=== PATIENT | female | born 1955 | race Caucasian/White ===

== ENCOUNTER 2016-12-04 06:05 | Emergency (ER) | payer OTHER ==
[2016-12-04] MEDS ORDERED: Aspirin 325 MG Tab PO ONE (06:24)
[2016-12-04] MEDS ORDERED: Aspirin 81 MG Tab.Chew PO ONE (06:26)
[2016-12-04] MEDS ORDERED: Nitroglycerin 2% Oint 1 GM UD Packet TOP ONE (06:33)
--- NOTE | 2016-12-04 06:38 | EDM.PDOC ---
ED HPI GENERAL MEDICAL PROBLEM - General Chief Complaint: Cardiovascular Problem Stated Complaint: CHEST PAIN Time Seen by Provider: 12/04/16 06:28 Source of Information: Reports: Patient, Family History Limitations: Reports: Respiratory Distress (chest pain) - History of Present Illness INITIAL COMMENTS - FREE TEXT/NARRATIVE: 61 y.o.w.f, smoker 20 pack years, came to the ed this am due to SSCP, which got orse acutely at about 3 am. Pt has CP for 1 week with radiation to her left arm. 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 No N/V/D or any other acute medical issues at this time. Onset Date: 12/04/16 Onset Time: 03:00 Duration: Hour(s):, Intermittent Location: Reports: Chest Quality: Reports: Dull, Pressure Severity: Moderate Improves with: Reports: Medication Associated Symptoms: Reports: Chest Pain Treatments BOTTOM STOP ATTACHER: Reports: Acetaminophen Chest Pain Score (Numeric/FACES): 5 - Related Data Allergies Allergy/AdvReac Type Severity Reaction Status Date / Time No Known Allergies Allergy Verified 12/04/16 06:27 Home Meds: Home Meds Levothyroxine Sodium [Synthroid] 100 mcg PO DAILY 12/04/16 [History] Social & Family History - Tobacco Use Years of Tobacco use: 24 - Alcohol Use Days Per Week of Alcohol Use: 0 - Recreational Drug Use Recreational Drug Use: No ED ROS GENERAL - Review of Systems Review Of Systems: See Below Constitutional: Reports: No Symptoms HEENT: Reports: No Symptoms Respiratory: Reports: Shortness of Breath, Wheezing Cardiovascular: Reports: Chest Pain Endocrine: Reports: No Symptoms GI/Abdominal: Reports: No Symptoms : Reports: No Symptoms Musculoskeletal: Reports: No Symptoms Skin: Reports: No Symptoms Neurological: Reports: No Symptoms Psychiatric: Reports: No Symptoms Hematologic/Lymphatic: Reports: No Symptoms Immunologic: Reports: No Symptoms ED EXAM, GENERAL - Physical Exam Exam: See Below Exam Limited By: No Limitations General Appearance: Alert, WD/WN, Moderate Distress Eye Exam: Bilateral Eye: Normal Inspection Ears: Normal External Exam Ear Exam: Bilateral Ear: Auricle Normal Nose: Normal Inspection, Normal Mucosa Throat/Mouth: Other (poor dentition) Head: Atraumatic, Normocephalic Neck: Normal Inspection, Supple, Non-Tender Respiratory/Chest: Wheezing Cardiovascular: Normal Peripheral Pulses, Regular Rate, Rhythm GI/Abdominal: Normal Bowel Sounds, Soft (Female) Exam: Deferred Rectal (Female) Exam: Deferred Back Exam: Normal Inspection, Full Range of Motion Extremities: Normal Inspection, Normal Range of Motion, Non-Tender Neurological: Alert, Oriented, CN II-XII Intact, Normal Cognition Psychiatric: Normal Affect, Normal Mood Skin Exam: Warm, Dry, Intact, Normal Color, No Rash Lymphatic: No Adenopathy EKG INTERPRETATION EKG Date: 12/04/16 Time: 06:10 Rhythm: NSR Rate (Beats/Min): 71 [place]: Normal P-Wave: Present QRS: Normal ST-T: Other (1 mm inf leads with reciprocal ST depression ant. lat leads.) QT: Normal Comparison: NA - No Prior EKG Course - Vital Signs Text/Narrative:: 61 y.o.w.f, smoker 20 pack years, came to the ed this am due to SSCP, which got orse acutely at about 3 am. Pt has CP for 1 week with radiation to her left arm. 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 No N/V/D or any other acute medical issues at this time. PE: WNWD WF with SSCP, exp wheezes. EKG: ST elevation in leads 1 mm Consultation: Dr. Obrien, Assistant Spa Manager [facility]: Pt does not qualify for STEMI , Repeat EKG: ST elevations inf leads: Not worsening: As per Dr. Pina, pt does tot qualify for a STEMI and must be treated as a Non STEMI with nitropast and Heparin drip with 4000 Units bolus, Addendum: The 2 ECGs were faxed to Dr. Pina. Labs: Na 129, BNP 264, Troponin 14.11 K 3.9 Imaging: CXR port: NAD Impression: Non STEMI, Asthma Tx: ASA, NTG, NS, Heparin, Protonix, Morphion, duoneb. Consultation: [facility] accepted the pt for transfer and admission. Vitals on transfer: BP 145/87 O2 100% on RA, puls 72 pain level 2-310 Plan: Transfere to [facility], direct admit by EMS. Last Recorded V/S: Last Vital Signs Temp 36.3 C 12/04/16 07:30 Pulse 66 12/04/16 07:30 Resp 14 12/04/16 07:30 BP 145/74 H 12/04/16 07:33 Pulse Ox 99 12/04/16 07:30 - Orders/Labs/Meds Orders: Active Orders 24 hr Category Date Time Status Supplemental O2 [Oxygen Therapy, ED] [RC] ASDIRECTED Care 12/04/16 07:17 Active CXR [Chest 1V Frontal] [CR] Stat Exams 12/04/16 06:27 Taken EKG 12 Lead [EK] Routine Ther 12/04/16 06:00 Ordered EKG 12 Lead [EK] Routine Ther 12/04/16 06:35 Ordered Labs: Laboratory Tests 12/04/16 12/04/16 12/04/16 Range/Units 06:30 06:38 06:38 WBC 11.4 (4.5-12.0) X10-3/uL RBC 4.97 (3.23-5.20) x10(6)uL Hgb 16.1 H (11.5-15.5) g/dL Hct 47.3 (30.0-51.3) % MCV 95.3 (80-96) fL MCH 32.4 (27.7-33.6) pg MCHC 34.0 (32.2-35.4) g/dL RDW 12.3 (11.5-15.5) % Plt Count 237 (125-369) X10(3)uL MPV 8.1 (7.4-10.4) fL Neut % (Auto) 76.2 (46-82) % Lymph % (Auto) 16.3 (13-37) % [place] % (Auto) 5.9 (4-12) % Eos % (Auto) 1 (1.0-5.0) % Baso % (Auto) 1 (0-2) % Neut # (Auto) 8.6 H (1.6-8.3) # Lymph # (Auto) 1.9 (0.6-5.0) # [place] # (Auto) 0.7 (0.0-1.3) # Eos # (Auto) 0.1 (0.0-0.8) # Baso # (Auto) 0.1 (0.0-0.2) # PT 9.7 (8.7-11.1) INR 0.96 (0.89-1.13) Sodium (135-145) mmol/L Potassium (3.5-5.3) mmol/L Chloride (100-110) mmol/L Carbon Dioxide (23-29) mmol/L BUN (5-20) mg/dL Creatinine (0.6-1.3) mg/dL Est Cr Clr Drug Dosing mL/min Estimated GFR (MDRD) (>60) BUN/Creatinine Ratio (9-20) Glucose (80-116) mg/dL Calcium (8.6-10.2) mg/dL Troponin I (0.02-0.06) NG/ML B-Natriuretic Peptide 264 H (0-100) pg/mL 12/04/16 12/04/16 Range/Units 06:38 06:38 WBC (4.5-12.0) X10-3/uL RBC (3.23-5.20) x10(6)uL Hgb (11.5-15.5) g/dL Hct (30.0-51.3) % MCV (80-96) fL MCH (27.7-33.6) pg MCHC (32.2-35.4) g/dL RDW (11.5-15.5) % Plt Count (125-369) X10(3)uL MPV (7.4-10.4) fL Neut % (Auto) (46-82) % Lymph % (Auto) (13-37) % [place] % (Auto) (4-12) % Eos % (Auto) (1.0-5.0) % Baso % (Auto) (0-2) % Neut # (Auto) (1.6-8.3) # Lymph # (Auto) (0.6-5.0) # [place] # (Auto) (0.0-1.3) # Eos # (Auto) (0.0-0.8) # Baso # (Auto) (0.0-0.2) # PT (8.7-11.1) INR (0.89-1.13) Sodium 129 L (135-145) mmol/L Potassium 3.8 (3.5-5.3) mmol/L Chloride 98 L (100-110) mmol/L Carbon Dioxide 22 L (23-29) mmol/L BUN 15 (5-20) mg/dL Creatinine 1.1 (0.6-1.3) mg/dL Est Cr Clr Drug Dosing 49.55 mL/min Estimated GFR (MDRD) 51 L (>60) BUN/Creatinine Ratio 13.6 (9-20) Glucose 171 H (80-116) mg/dL Calcium 9.4 (8.6-10.2) mg/dL Troponin I 14.11 H* (0.02-0.06) NG/ML B-Natriuretic Peptide (0-100) pg/mL Meds: Medications Discontinued Medications Generic Name Dose Route Start Last Admin Trade Name Yoelq PRN Reason Stop Dose Admin Albuterol/Ipratropium 3 ml 12/04/16 07:15 12/04/16 07:21 Duoneb 3.0-0.5 Mg/3 Ml NEB 12/04/16 07:16 3 ml ONETIME ONE Administration Aspirin 325 mg 12/04/16 06:24 Aspirin PO 12/04/16 06:25 ONETIME ONE Aspirin 324 mg 12/04/16 06:26 12/04/16 06:47 Aspirin PO 12/04/16 06:27 324 mg ONETIME ONE Administration Heparin Sodium (Porcine) 4,000 units 12/04/16 06:53 12/04/16 07:02 Heparin Sodium IVPUSH 12/04/16 06:54 4,000 units ONETIME ONE Administration Heparin Sodium (Porcine) Confirm 12/04/16 06:55 12/04/16 07:02 Heparin Sodium Administered 12/04/16 06:56 Not Given Dose 5,000 units .ROUTE .STK-MED ONE Sodium Chloride 1,000 mls @ 125 mls/hr 12/04/16 06:45 Normal Saline IV ASDIRECTED ON LICENSE OF [facility] Heparin Sodium/Dextrose Confirm 12/04/16 06:55 12/04/16 07:02 Heparin 25,000 Units In D5w 500 Ml Administered 12/04/16 06:56 Not Given Dose 500 mls @ as directed .ROUTE .STK-MED ONE Heparin Sodium/Dextrose 25,000 units in 500 mls @ 15.241 mls/hr 12/04/16 07: 00 12/04/16 07:10 Heparin 25,000 Units In D5w 500 Ml IV 12 units/kg/hr TITRATE BURAK 15.241 mls/hr Protocol Administration 12 UNITS/KG/HR Sodium Chloride 500 mls @ 999 mls/hr 12/04/16 07:06 06/29/17 07:19 Normal Saline IV 12/04/16 07:36 999 mls/hr .BOLUS ONE Administration Morphine Sulfate 1 mg 12/04/16 07:05 12/04/16 07:18 Morphine IVPUSH 12/04/16 07:06 1 mg ONETIME ONE Administration Morphine Sulfate 2 mg 12/04/16 07:24 12/04/16 07:31 Morphine IVPUSH 12/04/16 07:25 2 mg ONETIME ONE Administration Morphine Sulfate 4 mg 12/04/16 07:33 12/04/16 07:44 Morphine IVPUSH 12/04/16 07:34 4 mg ONETIME ONE Administration Nitroglycerin 1 gm 12/04/16 06:33 12/04/16 06:47 Nitro-Bid 2% TOP 12/04/16 06:34 1 gm ONETIME ONE Administration Nitroglycerin 0.4 mg 12/04/16 07:32 12/04/16 07:33 Nitrostat SL 12/04/16 07:43 0.4 mg Q5M PRN Administration Chest Pain Pantoprazole Sodium 40 mg 12/04/16 07:28 12/04/16 07:36 Protonix Iv IVPUSH 12/04/16 07:29 40 mg ONETIME ONE Administration Departure - Departure Time of Disposition: 07:30 Disposition: DC/Tfer to Acute Hospital 02 Reason for Transfer *Q: Other (No Assistant Spa Manager in this facility) Condition: Fair Clinical Impression: Non-ST elevated myocardial infarction (non-STEMI) Asthma Qualifiers: Asthma severity: moderate persistent Asthma complication type: with acute exacerbation Qualified Code(s): J45.41 - Moderate persistent asthma with (acute ) exacerbation Referrals: Migel Davis MD [Primary Care Provider] - Forms: ED Department Discharge - My Orders Last 24 Hours: My Active Orders 12/04/16 06:00 EKG 12 Lead [EK] Routine 12/04/16 06:27 CXR [Chest 1V Frontal] [CR] Stat 12/04/16 06:35 EKG 12 Lead [EK] Routine 12/04/16 07:17 Supplemental O2 [Oxygen Therapy, ED] [RC] ASDIRECTED - Assessment/Plan Last 24 Hours: My Active Orders 12/04/16 06:00 EKG 12 Lead [EK] Routine 12/04/16 06:27 CXR [Chest 1V Frontal] [CR] Stat 12/04/16 06:35 EKG 12 Lead [EK] Routine 12/04/16 07:17 Supplemental O2 [Oxygen Therapy, ED] [RC] ASDIRECTED
[2016-12-04] MEDS: Sodium Chloride 0.9% 1,000 ML IV SCH (06:45)
[2016-12-04] MEDS ORDERED: Heparin Sodium 5,000 Units/ML Vial ONE (06:55)
[2016-12-04] MEDS: Heparin Sodium 5,000 Units/ML Vial IVPUSH ONE ×2 (07:00→07:02)
[2016-12-04] MEDS: Heparin Sodium/D5W 500 ML ONE ×2 (07:00→07:02)
[2016-12-04] MEDS ORDERED: Heparin Sodium/D5W 25,000 UNITS/500 ML BAG IV SCH (07:00)
[2016-12-04] MEDS ORDERED: Morphine 2 MG/ML Syringe IVPUSH ONE ×2 (07:05→07:24)
[2016-12-04] MEDS ORDERED: Sodium Chloride 0.9% 500 ML IV ONE (07:06)
[2016-12-04] MEDS ORDERED: Albuterol/Ipratropium 3.0-0.5 MG/3 ML Neb Soln NEB ONE (07:15)
[2016-12-04] MEDS ORDERED: Pantoprazole 40 MG Vial IVPUSH ONE (07:28)
[2016-12-04] MEDS ORDERED: Nitroglycerin 0.4 MG Tab.SL SL PRN (07:32)
[2016-12-04] MEDS ORDERED: Morphine 4 MG/ML Syringe IVPUSH ONE (07:33)
[2016-12-04 07:34] VITALS: BP 145/74
--- NOTE | 2016-12-05 10:36 | CR ---
INDICATION: Chest pain. CHEST: Two AP portable upright views of the chest were obtained 12/04/2016. No comparisons were available. The heart appeared normal in size. The aorta is minimally calcified in the arch area. Overlying EKG leads are noted. An active infiltrate or effusion was not identified. IMPRESSION: 1. No acute process. 2. ASD aorta. MTDD
== END 2016-12-04 07:50 ==
LOC: FB.ED 06:05
DX: I21.4 Non-ST elevation (NSTEMI) myocardial infarction (principal); J45.41 Moderate persistent asthma with (acute) exacerbation
CPT/HCPCS: 36415; 71010; 80048; 83880; 84484; 85025; 85610; 93005; 94640; 94664; 96365; 96375; 96376; 99285; A9270; C9113; J1644; J2270; J7040; J7620

== ENCOUNTER 2019-07-11 18:26 | Emergency (ER) | payer SELFPAY ==
[2019-07-11] MEDS ORDERED: Ketorolac 30 MG/ML SDV IM ONE (19:01)
--- NOTE | 2019-07-11 19:07 | EDM.PDOC ---
ED HPI GENERAL MEDICAL PROBLEM - General Chief Complaint: Lower Extremity Injury/Pain Stated Complaint: WEAK BACK PAIN Time Seen by Provider: 07/11/19 18:32 Source of Information: Reports: Patient History Limitations: Reports: No Limitations - History of Present Illness INITIAL COMMENTS - FREE TEXT/NARRATIVE: has bilateral neuropathy but this pm, made dinner ,sat down and ate dinner , then afterwards , developed pain in the lower back radiating down the right leg to the right knee States she has had same in the past , pain in the right leg gets worse with ambulation, activity and better with rest Onset: Today Onset Date: 07/11/19 Onset Time: 17:00 Location: Reports: Back, Lower Extremity, Right Quality: Reports: Ache, Dull Severity: Moderate Improves with: Reports: Heat Therapy, Rest Worsens with: Reports: Movement Context: Reports: Activity Bilateral Leg Pain Score (Numeric/FACES): 8 - Related Data Allergies Allergy/AdvReac Type Severity Reaction Status Date / Time No Known Allergies Allergy Verified 12/04/16 06:27 Home Meds: Home Meds Baclofen 10 mg PO BID PRN #20 tablet 07/11/19 [Rx] Clopidogrel [Plavix] 75 mg PO DAILY 07/11/19 [History] Glimepiride [Amaryl] 4 mg PO DAILY 07/11/19 [History] Levothyroxine [Synthroid] 88 mcg PO DAILY 07/11/19 [History] Losartan [Cozaar] 25 mg PO DAILY 07/11/19 [History] Meloxicam 7.5 mg PO DAILY #7 tablet 07/11/19 [Rx] Metoprolol Succinate [Toprol XL] 25 mg PO DAILY 07/11/19 [History] Montelukast [Singulair] 10 mg PO DAILY 07/11/19 [History] atorvaSTATin [Lipitor] 80 mg PO DAILY 07/11/19 [History] predniSONE 40 mg PO DAILY #5 tab 07/11/19 [Rx] Social & Family History - Tobacco Use Smoking Status *Q: Never Smoker - Caffeine Use Caffeine Use: Reports: Coffee - Recreational Drug Use Recreational Drug Use: No Review of Systems - Review of Systems Review Of Systems: See Below Constitutional: Reports: No Symptoms Eyes: Reports: No Symptoms Ears: Reports: No Symptoms Nose: Reports: No Symptoms Mouth/Throat: Reports: No Symptoms Respiratory: Reports: No Symptoms Cardiovascular: Reports: No Symptoms GI/Abdominal: Reports: No Symptoms Musculoskeletal: Reports: Back Pain, Leg Pain (right sided) Skin: Reports: No Symptoms Neurological: Reports: Dizziness, Headache, Numbness, Paresthesia, Tingling ( right leg) Psychiatric: Reports: Anxiety ED EXAM, GENERAL - Physical Exam Exam: See Below Exam Limited By: No Limitations General Appearance: Alert, WD/WN, Mild Distress (pain in the lower back with attempts to move) Ears: Normal External Exam Throat/Mouth: Normal Inspection Head: Atraumatic, Normocephalic Neck: Supple, Non-Tender, Full Range of Motion Respiratory/Chest: No Respiratory Distress, Chest Non-Tender Back Exam: Paraspinal Tenderness, Vertebral Tenderness (in L4-5 region on palpation), Other (SLR is positive on the right) Extremities: Limited Range of Motion (in the right leg due to pain in the lumbar region , sensation intact). No: Mottled, Pallor, Redness Neurological: Alert, Oriented, CN II-XII Intact, Abnormal Gait (antalgic gait) Skin Exam: Warm, Dry Course - Vital Signs Last Recorded V/S: Last Vital Signs Temp 36.6 C 07/11/19 18:26 Pulse 110 H 07/11/19 18:26 Resp 20 07/11/19 18:26 BP 118/68 07/11/19 18:26 Pulse Ox 100 07/11/19 18:26 - Orders/Labs/Meds Orders: Active Orders 24 hr Category Date Time Status Lumbar Spine 2 or 3V [CR] Stat Exams 07/11/19 18:59 Taken Meds: Medications Discontinued Medications Generic Name Dose Route Start Last Admin Trade Name Luzmaria PRN Reason Stop Dose Admin Ketorolac Tromethamine 30 mg 07/11/19 19:01 07/11/19 19:33 Toradol IM 07/11/19 19:02 30 mg ONETIME ONE Administration Prednisone 50 mg 07/12/19 07:03 Prednisone PO 07/12/19 07:04 ONETIME ONE Prednisone 50 mg 07/11/19 19:24 07/11/19 19:32 Prednisone PO 07/11/19 19:25 50 mg ONETIME ONE Administration Departure - Departure Time of Disposition: 20:15 Disposition: Home, Self-Care 01 Condition: Fair Clinical Impression: Right-sided low back pain with right-sided sciatica, Lumbar paraspinal muscle spasm - Discharge Information *PRESCRIPTION DRUG MONITORING PROGRAM REVIEWED*: Not Applicable *COPY OF PRESCRIPTION DRUG MONITORING REPORT IN PATIENT [place]: Not Applicable Prescriptions: Baclofen 10 mg PO BID PRN #20 tablet PRN Reason: Muscle Spasm Meloxicam 7.5 mg PO DAILY #7 tablet predniSONE 40 mg PO DAILY #5 tab Instructions: Back Exercises, [id number], Sciatica, [id number], Muscle Cramps and Spasms, [id number] Referrals: Alvin Chahal PA [Primary Care Provider] - Forms: ED Department Discharge Sepsis Event Note - Evaluation Sepsis Screening Result: No Definite Risk - Focused Exam Vital Signs: Vital Signs Temp Pulse Resp BP Pulse Ox 07/11/19 18:26 36.6 C 110 H 20 118/68 100 Date Exam was Performed: 07/11/19 Time Exam was Performed: 20:15 - My Orders Last 24 Hours: My Active Orders 07/11/19 18:59 Lumbar Spine 2 or 3V [CR] Stat - Assessment/Plan Last 24 Hours: My Active Orders 07/11/19 18:59 Lumbar Spine 2 or 3V [CR] Stat
[2019-07-11] MEDS ORDERED: predniSONE 20 MG Tab PO ONE (19:24)
[2019-07-12 06:21] VITALS: BP 126/60; PULSE 97
[2019-07-12] MEDS ORDERED: predniSONE 20 MG Tab PO ONE (07:03)
--- NOTE | 2019-07-12 17:24 | CR ---
INDICATION: Low back pain, right sciatica. LUMBOSACRAL SPINE, FOUR VIEWS: Four images of the lumbosacral spine in frontal and lateral projections were obtained 07/11/19 - no comparisons. A slight tilt of the spine is centered at the L4-5 level. Vertebral body and disc heights appear to be fairly well maintained. Pedicles appear to be intact. Bone density may be somewhat diminished raising question of osteomalacia or osteoporosis - correlate clinically. A mild hypertrophic spur is noted anteriorly off the L3 vertebral body cranio- anteriorly. No acute fracture or dislocation was suggested. Appearance of increased density in a horseshoe appearance overlying the spine is of questionable significance but could be related to a horseshoe type kidney. However, this appearance was not seen on a previous ultrasound of the right upper quadrant/abdomen on 04/13/12 and it may be artifactual. Calcifications incidentally are noted in the abdominal aorta and iliac arteries. IMPRESSION: 1. Tilt of the spine to the left of moderate degree. 2. Somewhat demineralized appearance raising question of osteoporosis or osteomalacia - correlate clinically - DEXA scan may be helpful. 3. ASD, MTDD
== END 2019-07-11 20:40 | disposition home or self-care (01) ==
LOC: FB.ED 18:26
DX: M54.41 Lumbago with sciatica, right side (principal); M62.830 Muscle spasm of back
CPT/HCPCS: 72100; 96372; 99283; A9270; J1885

== ENCOUNTER 2019-09-02 15:42 | Emergency (ER) | payer MEDICAID, OTHER ==
[2019-09-02] MEDS ORDERED: Sodium Chloride 0.9% 250 ML IV SCH (16:00)
[2019-09-02] MEDS ORDERED: Sodium Chloride 0.9% 1,000 ML IV SCH ×3 (16:15→18:45)
--- NOTE | 2019-09-02 16:21 | EDM.PDOC ---
ED HPI GENERAL MEDICAL PROBLEM - General Chief Complaint: General Stated Complaint: shortness of breath Time Seen by Provider: 09/02/19 16:40 Source of Information: Reports: Patient, Family. Denies: Senior Living Records History Limitations: Reports: No Limitations - History of Present Illness INITIAL COMMENTS - FREE TEXT/NARRATIVE: pt presented to clinic with continous low back pain , radiating down her leg with numbness and tingling in the leg had been on NSAID, no obvious bleed , no gross hematuria , no bloody diarrhea , no vomiting denies chest resendiz , but has sob seen in clinic and noted to be very pale with Hgb of 3 pt is on Plavix Onset: Today Onset Date: 09/02/19 Duration: Day(s): Location: Reports: Back, Lower Extremity, Left, Radiates to (left leg) Quality: Reports: Ache, Burning Improves with: Reports: None Worsens with: Reports: Movement Associated Symptoms: Reports: Weakness Treatments 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 Therapy, Heat Therapy BACK Pain Score (Numeric/FACES): 8 - Related Data Allergies Allergy/AdvReac Type Severity Reaction Status Date / Time No Known Allergies Allergy Verified 09/12/19 12:38 Home Meds: Home Meds Baclofen 10 mg PO BID PRN #20 tablet 07/11/19 [Rx] Clopidogrel [Plavix] 75 mg PO DAILY 07/11/19 [History] Glimepiride [Amaryl] 4 mg PO DAILY 07/11/19 [History] Levothyroxine [Synthroid] 88 mcg PO DAILY 07/11/19 [History] Losartan [Cozaar] 25 mg PO DAILY 07/11/19 [History] Meloxicam 7.5 mg PO DAILY #7 tablet 07/11/19 [Rx] Metoprolol Succinate [Toprol XL] 25 mg PO DAILY 07/11/19 [History] atorvaSTATin [Lipitor] 80 mg PO DAILY 07/11/19 [History] Aspirin [Lo-Dose Aspirin EC] 81 mg PO DAILY 09/02/19 [History] Azithromycin [Zithromax] 500 mg PO DAILY #4 tab 09/12/19 [Rx] Nitrofurantoin Monohyd/M-Cryst [Macrobid 100 mg Capsule] 100 mg PO BID #14 capsule 09/12/19 [Rx] Past Medical History Cardiovascular History: Reports: ND, Stents - Infectious Disease History Infectious Disease History: Reports: None - Past Surgical History Cardiovascular Surgical History: Reports: Coronary Artery Stent Social & Family History - Family History Family Medical History: Noncontributory - Caffeine Use Caffeine Use: Reports: Coffee ED ROS GENERAL - Review of Systems Review Of Systems: See Below Constitutional: Reports: Weakness, Decreased Appetite HEENT: Reports: No Symptoms Respiratory: Reports: Shortness of Breath. Denies: Wheezing, Cough Cardiovascular: Reports: Lightheadedness, Palpitations. Denies: Chest Pain Endocrine: Reports: Fatigue GI/Abdominal: Reports: Decreased Appetite Musculoskeletal: Reports: Back Pain (lumbar back pain) Skin: Reports: Pallor (+++) Neurological: Reports: Dizziness, Weakness Psychiatric: Reports: No Symptoms Hematologic/Lymphatic: Reports: Anemia. Denies: Easy Bruising, Swollen Glands ED EXAM, GENERAL - Physical Exam Exam: See Below Exam Limited By: No Limitations General Appearance: Alert, Lethargic, Other (very pale and ill looking) Eye Exam: Bilateral Eye: EOMI, Other (pale) Ears: Normal External Exam Ear Exam: Bilateral Ear: TM normal Nose: Normal Inspection Throat/Mouth: Normal Inspection Head: Atraumatic Neck: Supple, Non-Tender Respiratory/Chest: Decreased Breath Sounds, Crackles, Rales Cardiovascular: Regular Rate, Rhythm, Systolic Murmur Peripheral Pulses: 1+: Dorsalis Pedis (L), Dorsalis Pedis (R) GI/Abdominal: Soft, Non-Tender Back Exam: Muscle Spasm, Paraspinal Tenderness (lumbar region) Extremities: Limited Range of Motion Neurological: Alert, Oriented Psychiatric: Normal Affect Skin Exam: Warm EKG INTERPRETATION EKG Date: 09/02/19 Rhythm: NSR [place]: Normal P-Wave: Present QRS: Normal ST-T: Normal Comparison: NA - No Prior EKG Course - Vital Signs Last Recorded V/S: Last Vital Signs Temp 35.9 C L 09/02/19 19:15 Pulse 88 09/02/19 19:15 Resp 24 H 09/02/19 19:15 BP 104/59 L 09/02/19 19:15 Pulse Ox 100 09/02/19 18:21 - Orders/Labs/Meds Labs: Laboratory Tests 09/02/19 09/02/19 09/02/19 Range/Units 15:50 15:50 15:50 WBC 10.0 (4.5-12.0) X10-3/uL RBC 2.08 L (3.23-5.20) x10(6)uL Hgb 3.4 L* (11.5-15.5) g/dL Hct 12.1 L* D (30.0-51.3) % MCV 58.3 L (80-96) fL MCH 16.5 L (27.7-33.6) pg MCHC 28.4 L (32.2-35.4) g/dL RDW 22.1 H (11.5-15.5) % Plt Count 422 H (125-369) X10(3)uL MPV 7.1 L (7.4-10.4) fL Neut % (Auto) 83.2 H (46-82) % Lymph % (Auto) 11.3 L (13-37) % Cecil % (Auto) 4.5 (4-12) % Eos % (Auto) 0 L (1.0-5.0) % Baso % (Auto) 1 (0-2) % Neut # (Auto) 8.3 (1.6-8.3) # Lymph # (Auto) 1.1 (0.6-5.0) # Cecil # (Auto) 0.4 (0.0-1.3) # Eos # (Auto) 0.0 (0.0-0.8) # Baso # (Auto) 0.1 (0.0-0.2) # PT 10.7 (9.0-11.1) sec INR 1.11 (1.00-1.24) Sodium 135 (135-145) mmol/L Potassium 5.0 (3.5-5.3) mmol/L Chloride 102 (100-110) mmol/L Carbon Dioxide 15 L (21-32) mmol/L BUN 16 (7-18) mg/dL Creatinine 1.4 H (0.55-1.02) mg/dL Est Cr Clr Drug Dosing TNP Estimated GFR (MDRD) 38 L (>60) BUN/Creatinine Ratio 11.4 (9-20) Glucose 116 (80-116) mg/dL Lactic Acid (0.4-2.0) mmol/L Calcium 9.0 (8.6-10.2) mg/dL Total Bilirubin 0.6 (0.1-1.3) mg/dL AST 14 (5-25) IU/L ALT 13 (12-36) U/L Alkaline Phosphatase 104 (56-112) IU/L Troponin I (4.0-60.3) pg/mL NT-Pro-B Natriuret Pep (<=125) pg/mL Total Protein 6.8 (6.0-8.0) g/dL Albumin 3.4 (3.2-4.6) g/dL Globulin 3.4 g/dL Albumin/Globulin Ratio 1.0 Urine Color (YELLOW) Urine Appearance (CLEAR) Urine pH (5.0-6.5) Ur Specific Lottie (1.010-1.025) Urine Protein (NEGATIVE) mg/dL Urine Glucose (UA) (NORMAL) mg/dL Urine Ketones (NEGATIVE) mg/dL Urine Occult Blood (NEGATIVE) Urine Nitrite (NEGATIVE) Urine Bilirubin (NEGATIVE) Urine Urobilinogen (NEGATIVE) mg/dL Ur Leukocyte Esterase (NEGATIVE) Urine RBC (0-5) Urine WBC (0-5) Ur Squamous Epith Cells (NS,R,O) Urine Bacteria (NS) Blood Type Gel Antibody Screen Crossmatch 09/02/19 09/02/19 09/02/19 Range/Units 15:50 15:50 15:50 WBC (4.5-12.0) X10-3/uL RBC (3.23-5.20) x10(6)uL Hgb (11.5-15.5) g/dL Hct (30.0-51.3) % MCV (80-96) fL MCH (27.7-33.6) pg MCHC (32.2-35.4) g/dL RDW (11.5-15.5) % Plt Count (125-369) X10(3)uL MPV (7.4-10.4) fL Neut % (Auto) (46-82) % Lymph % (Auto) (13-37) % Cecil % (Auto) (4-12) % Eos % (Auto) (1.0-5.0) % Baso % (Auto) (0-2) % Neut # (Auto) (1.6-8.3) # Lymph # (Auto) (0.6-5.0) # Cecil # (Auto) (0.0-1.3) # Eos # (Auto) (0.0-0.8) # Baso # (Auto) (0.0-0.2) # PT (9.0-11.1) sec INR (1.00-1.24) Sodium (135-145) mmol/L Potassium (3.5-5.3) mmol/L Chloride (100-110) mmol/L Carbon Dioxide (21-32) mmol/L BUN (7-18) mg/dL Creatinine (0.55-1.02) mg/dL Est Cr Clr Drug Dosing Estimated GFR (MDRD) (>60) BUN/Creatinine Ratio (9-20) Glucose (80-116) mg/dL Lactic Acid (0.4-2.0) mmol/L Calcium (8.6-10.2) mg/dL Total Bilirubin (0.1-1.3) mg/dL AST (5-25) IU/L ALT (12-36) U/L Alkaline Phosphatase (56-112) IU/L Troponin I 10.6 (4.0-60.3) pg/mL NT-Pro-B Natriuret Pep 460 H (<=125) pg/mL Total Protein (6.0-8.0) g/dL Albumin (3.2-4.6) g/dL Globulin g/dL Albumin/Globulin Ratio Urine Color (YELLOW) Urine Appearance (CLEAR) Urine pH (5.0-6.5) Ur Specific [place]ottie (1.010-1.025) Urine Protein (NEGATIVE) mg/dL Urine Glucose (UA) (NORMAL) mg/dL Urine Ketones (NEGATIVE) mg/dL Urine Occult Blood (NEGATIVE) Urine Nitrite (NEGATIVE) Urine Bilirubin (NEGATIVE) Urine Urobilinogen (NEGATIVE) mg/dL Ur Leukocyte Esterase (NEGATIVE) Urine RBC (0-5) Urine WBC (0-5) Ur Squamous Epith Cells (NS,R,O) Urine Bacteria (NS) Blood Type A POSITIVE Gel Antibody Screen Negative Crossmatch See Detail 09/02/19 09/02/19 Range/Units 18:00 19:00 WBC (4.5-12.0) X10-3/uL RBC (3.23-5.20) x10(6)uL Hgb (11.5-15.5) g/dL Hct (30.0-51.3) % MCV (80-96) fL MCH (27.7-33.6) pg MCHC (32.2-35.4) g/dL RDW (11.5-15.5) % Plt Count (125-369) X10(3)uL MPV (7.4-10.4) fL Neut % (Auto) (46-82) % Lymph % (Auto) (13-37) % Cecil % (Auto) (4-12) % Eos % (Auto) (1.0-5.0) % Baso % (Auto) (0-2) % Neut # (Auto) (1.6-8.3) # Lymph # (Auto) (0.6-5.0) # Cecil # (Auto) (0.0-1.3) # Eos # (Auto) (0.0-0.8) # Baso # (Auto) (0.0-0.2) # PT (9.0-11.1) sec INR (1.00-1.24) Sodium (135-145) mmol/L Potassium (3.5-5.3) mmol/L Chloride (100-110) mmol/L Carbon Dioxide (21-32) mmol/L BUN (7-18) mg/dL Creatinine (0.55-1.02) mg/dL Est Cr Clr Drug Dosing Estimated GFR (MDRD) (>60) BUN/Creatinine Ratio (9-20) Glucose (80-116) mg/dL Lactic Acid 5.4 H* (0.4-2.0) mmol/L Calcium (8.6-10.2) mg/dL Total Bilirubin (0.1-1.3) mg/dL AST (5-25) IU/L ALT (12-36) U/L Alkaline Phosphatase (56-112) IU/L Troponin I (4.0-60.3) pg/mL NT-Pro-B Natriuret Pep (<=125) pg/mL Total Protein (6.0-8.0) g/dL Albumin (3.2-4.6) g/dL Globulin g/dL Albumin/Globulin Ratio Urine Color Yellow (YELLOW) Urine Appearance Clear (CLEAR) Urine pH 5.0 (5.0-6.5) Ur Specific [place]ott[place] 1.010 (1.010-1.025) Urine Protein Negative (NEGATIVE) mg/dL Urine Glucose (UA) Normal (NORMAL) mg/dL Urine Ketones Negative (NEGATIVE) mg/dL Urine Occult Blood Negative (NEGATIVE) Urine Nitrite Negative (NEGATIVE) Urine Bilirubin Negative (NEGATIVE) Urine Urobilinogen Normal (NEGATIVE) mg/dL Ur Leukocyte Esterase Negative (NEGATIVE) Urine RBC 0-5 (0-5) Urine WBC 0-5 (0-5) Ur Squamous Epith Cells Occasional (NS,R,O) Urine Bacteria Rare H (NS) Blood Type Gel Antibody Screen Crossmatch Meds: Medications Discontinued Medications Generic Name Dose Route Start Last Admin Trade Name Freq PRN Reason Stop Dose Admin Sodium Chloride 250 mls @ 100 mls/hr 09/02/19 16:00 09/02/19 18:15 Normal Saline IV 100 mls/hr ASDIRECTED BURAK Administration Sodium Chloride 1,000 mls @ 999 mls/hr 09/02/19 16:15 09/02/19 16:42 Normal Saline IV 999 mls/hr ASDIRECTED BURAK Administration Sodium Chloride 1,000 mls @ 999 mls/hr 09/02/19 18:00 09/02/19 17:30 Normal Saline IV 999 mls/hr ASDIRECTED BURAK Administration Sodium Chloride 250 mls @ 100 mls/hr 09/02/19 18:30 09/02/19 19:15 Normal Saline IV 100 mls/hr ASDIRECTED BURAK Administration Sodium Chloride 1,000 mls @ 150 mls/hr 09/02/19 18:45 09/02/19 18:30 Normal Saline IV 150 mls/hr ASDIRECTED BURAK Administration Iopamidol 100 ml 09/02/19 19:16 09/02/19 19:17 Isovue-370 (76%) IV 09/02/19 19:17 82 ml ONETIME ONE Administration - Re-Assessments/Exams Free Text/Narrative Re-Assessment/Exam: 09/02/19 21:01 pt n arrival had blood and iVF ordered , then prep was done for CT of the abdomen and pelvis had to wait for blood to be crossmatched. pt had IVF at the time and remained stable Was given 2 units of A+ blood and one unit on o negative transfer was not available by air : so ambulance with [facility] came to transport her 09/02/19 21:03 Departure - Departure Time of Disposition: 20:20 Disposition: DC/Tfer to [facility] Reason for Transfer *Q: Other Condition: Serious Clinical Impression: Severe anemia, Aortic mural thrombus, Hypotension due to blood loss, Diabetes Referrals: Alvin Chahal PA [Primary Care Provider] - Forms: ED Department Discharge Sepsis Event Note - Focused Exam Date Exam was Performed: 09/12/19 Time Exam was Performed: 16:17
[2019-09-02] MEDS: Sodium Chloride 0.9% 250 ML IV SCH ×2 (18:45→19:15)
[2019-09-02] MEDS ORDERED: Iopamidol 755 Mg/ML 100 ML Bottle IV ONE (19:16)
[2019-09-02 21:38] VITALS: BP 104/59; PULSE 88
== END 2019-09-02 20:20 | disposition critical access hospital (66) ==
LOC: FB.ED 15:42
DX: D64.9 Anemia, unspecified (principal); I74.10 Embolism and thrombosis of unspecified parts of aorta; E11.9 Type 2 diabetes mellitus without complications; I95.9 Hypotension, unspecified; I25.2 Old myocardial infarction; Z79.899 Other long term (current) drug therapy; Z79.82 Long term (current) use of aspirin; Z79.02 Long term (current) use of antithrombotics/antiplatelets; Z79.84 Long term (current) use of oral hypoglycemic drugs
CPT/HCPCS: 36415; 36430; 51702; 74177; 80053; 81001; 82270; 83605; 83880; 84484; 85025; 85610; 86850; 86900; 86901; 86920; 86922; 93005; 96360; 96361; 99285; J7030; J7050; P9016; Q9967

== ENCOUNTER 2019-09-12 12:30 | Emergency (ER) | payer MEDICAID, OTHER ==
[2019-09-12] MEDS ORDERED: Sodium Chloride 0.9% 1,000 ML IV ONE (14:29)
[2019-09-12] MEDS ORDERED: Sodium Chloride 0.9% 10 ML Syringe FLUSH PRN (14:30)
[2019-09-12] MEDS ORDERED: cefTRIAXone 1 GM Vial IM ONE (14:47)
[2019-09-12] MEDS ORDERED: Azithromycin 500 MG Tab PO ONE (14:47)
--- NOTE | 2019-09-12 14:56 | EDM.PDOC ---
ED HPI GENERAL MEDICAL PROBLEM - General Chief Complaint: Fever Stated Complaint: BEEN HAVING FEVERS AT NIGHT,COLD CHILLS Time Seen by Provider: 09/12/19 12:40 Source of Information: Reports: Patient History Limitations: Reports: No Limitations - History of Present Illness INITIAL COMMENTS - FREE TEXT/NARRATIVE: pt was discharged form [place] one week ago : bleeding ulcer and aortic stenosis developed fever about 100.4 since thursday states has been persistent Fever is worse at night only Other betts feels weak and tired Onset: Gradual Onset Date: 09/10/19 Duration: Day(s): (3) - Related Data Allergies Allergy/AdvReac Type Severity Reaction Status Date / Time No Known Allergies Allergy Verified 09/12/19 12:38 Home Meds: Home Meds Baclofen 10 mg PO BID PRN #20 tablet 07/11/19 [Rx] Clopidogrel [Plavix] 75 mg PO DAILY 07/11/19 [History] Glimepiride [Amaryl] 4 mg PO DAILY 07/11/19 [History] Levothyroxine [Synthroid] 88 mcg PO DAILY 07/11/19 [History] Losartan [Cozaar] 25 mg PO DAILY 07/11/19 [History] Meloxicam 7.5 mg PO DAILY #7 tablet 07/11/19 [Rx] Metoprolol Succinate [Toprol XL] 25 mg PO DAILY 07/11/19 [History] atorvaSTATin [Lipitor] 80 mg PO DAILY 07/11/19 [History] Aspirin [Lo-Dose Aspirin EC] 81 mg PO DAILY 09/02/19 [History] Azithromycin [Zithromax] 500 mg PO DAILY #4 tab 09/12/19 [Rx] Nitrofurantoin Monohyd/M-Cryst [Macrobid 100 mg Capsule] 100 mg PO BID #14 capsule 09/12/19 [Rx] Past Medical History Cardiovascular History: Reports: CT, Stents Musculoskeletal History: Reports: Back Pain, Chronic Endocrine/Metabolic History: Reports: Diabetes, Type II, Hypothyroidism - Infectious Disease History Infectious Disease History: Reports: None - Past Surgical History Cardiovascular Surgical History: Reports: Coronary Artery Stent Social & Family History - Family History Family Medical History: Noncontributory - Tobacco Use Smoking Status *Q: Former Smoker Used Tobacco, but Quit: Yes Month/Year Tobacco Last Used: 2017 - Caffeine Use Caffeine Use: Reports: Coffee - Recreational Drug Use Recreational Drug Use: No ED ROS GENERAL - Review of Systems Review Of Systems: Comprehensive ROS is negative, except as noted in HPI. Constitutional: Reports: Fever, Chills, Malaise, Weakness, Fatigue HEENT: Reports: No Symptoms Respiratory: Reports: No Symptoms. Denies: Shortness of Breath, Wheezing, Cough Cardiovascular: Reports: No Symptoms Endocrine: Reports: No Symptoms GI/Abdominal: Reports: No Symptoms Musculoskeletal: Reports: No Symptoms Skin: Reports: No Symptoms Neurological: Reports: No Symptoms Psychiatric: Reports: No Symptoms ED EXAM, SEPSIS - Physical Exam Exam: See Below Exam Limited By: No Limitations General Appearance: Alert, WD/WN, No Apparent Distress Eye Exam: Bilateral Eye: EOMI Ears: Normal External Exam Nose: Normal Inspection Throat/Mouth: Normal Inspection, Normal Oropharynx Head: Atraumatic, Normocephalic Neck: Normal Inspection, Supple, Non-Tender Respiratory/Chest: Lungs Clear, Normal Breath Sounds Cardiovascular: Normal Peripheral Pulses, Regular Rate, Rhythm, No Murmur GI/Abdominal Exam: Soft, Non-Tender Rectal (Female) Exam: Normal Exam Back: Normal Inspection Extremities: Normal Inspection Neurological: Alert, Oriented Course - Vital Signs Last Recorded V/S: Last Vital Signs Temp 35.6 C L 09/12/19 15:25 Pulse 65 09/12/19 15:25 Resp 16 09/12/19 15:25 BP 130/56 L 09/12/19 15:25 Pulse Ox 100 09/12/19 15:25 - Orders/Labs/Meds Orders: Active Orders 24 hr Category Date Time Status CULTURE BLOOD [BC] Urgent Lab 09/12/19 13:00 Received CULTURE BLOOD [BC] Urgent Lab 09/12/19 13:10 Received CULTURE URINE [RM] Stat Lab 09/12/19 15:15 Received MISCELLANEOUS REFERENCE TEST Routine Lab 09/12/19 12:55 Received Sodium Chloride 0.9% [Saline Flush] Med 09/12/19 14:30 Active 10 ml FLUSH ASDIRECTED PRN Blood Culture x2 Reflex Set [OM.PC] Urgent Oth 09/12/19 12:48 Ordered Isolation [COMM] Routine Oth 09/12/19 12:50 Ordered Medication Orders Sodium Chloride (Saline Flush) 10 ml FLUSH ASDIRECTED PRN PRN Reason: IV Use Last Admin: 09/12/19 14:30 Dose: 10 ml Labs: Laboratory Tests 09/12/19 09/12/19 09/12/19 Range/Units 13:00 13:00 13:00 WBC 10.5 (4.5-12.0) X10-3/uL RBC 3.94 (3.23-5.20) x10(6)uL Hgb 9.0 L D (11.5-15.5) g/dL Hct 28.4 L D (30.0-51.3) % MCV 72.1 L (80-96) fL MCH 22.9 L (27.7-33.6) pg MCHC 31.8 L (32.2-35.4) g/dL RDW 29.0 H (11.5-15.5) % Plt Count 304 (125-369) X10(3)uL MPV 8.0 (7.4-10.4) fL Add Manual Diff Yes Neutrophils % (Manual) 77 (46-82) % Lymphocytes % (Manual) 17 (13-37) % Monocytes % (Manual) 6 (4-12) % Hypochromasia Few Poikilocytosis Moderate H Anisocytosis Many H Microcytosis Many H PT 10.1 (9.0-11.1) sec INR 1.04 (1.00-1.24) Sodium 135 (135-145) mmol/L Potassium 3.2 L D (3.5-5.3) mmol/L Chloride 100 (100-110) mmol/L Carbon Dioxide 21 (21-32) mmol/L BUN 10 (7-18) mg/dL Creatinine 1.5 H (0.55-1.02) mg/dL Est Cr Clr Drug Dosing 36.15 mL/min Estimated GFR (MDRD) 35 L (>60) BUN/Creatinine Ratio 6.7 L (9-20) Glucose 86 (80-116) mg/dL Calcium 8.4 L (8.6-10.2) mg/dL Total Bilirubin 0.8 (0.1-1.3) mg/dL AST 26 H D (5-25) IU/L ALT 28 D (12-36) U/L Alkaline Phosphatase 153 H (56-112) IU/L C-Reactive Protein (0.5-0.9) mg/dL Total Protein 6.8 (6.0-8.0) g/dL Albumin 2.7 L (3.2-4.6) g/dL Globulin 4.1 g/dL Albumin/Globulin Ratio 0.7 Urine Color (YELLOW) Urine Appearance (CLEAR) Urine pH (5.0-6.5) Ur Specific [place] (1.010-1.025) Urine Protein (NEGATIVE) mg/dL Urine Glucose (UA) (NORMAL) mg/dL Urine Ketones (NEGATIVE) mg/dL Urine Occult Blood (NEGATIVE) Urine Nitrite (NEGATIVE) Urine Bilirubin (NEGATIVE) Urine Urobilinogen (NEGATIVE) mg/dL Ur Leukocyte Esterase (NEGATIVE) Urine RBC (0-5) Urine WBC (0-5) Ur Squamous Epith Cells (NS,R,O) Urine Bacteria (NS) 09/12/19 09/12/19 Range/Units 13:00 15:15 WBC (4.5-12.0) X10-3/uL RBC (3.23-5.20) x10(6)uL Hgb (11.5-15.5) g/dL Hct (30.0-51.3) % MCV (80-96) fL MCH (27.7-33.6) pg MCHC (32.2-35.4) g/dL RDW (11.5-15.5) % Plt Count (125-369) X10(3)uL MPV (7.4-10.4) fL Add Manual Diff Neutrophils % (Manual) (46-82) % Lymphocytes % (Manual) (13-37) % Monocytes % (Manual) (4-12) % Hypochromasia Poikilocytosis Anisocytosis Microcytosis PT (9.0-11.1) sec INR (1.00-1.24) Sodium (135-145) mmol/L Potassium (3.5-5.3) mmol/L Chloride (100-110) mmol/L Carbon Dioxide (21-32) mmol/L BUN (7-18) mg/dL Creatinine (0.55-1.02) mg/dL Est Cr Clr Drug Dosing mL/min Estimated GFR (MDRD) (>60) BUN/Creatinine Ratio (9-20) Glucose (80-116) mg/dL Calcium (8.6-10.2) mg/dL Total Bilirubin (0.1-1.3) mg/dL AST (5-25) IU/L ALT (12-36) U/L Alkaline Phosphatase (56-112) IU/L C-Reactive Protein 22.9 H* (0.5-0.9) mg/dL Total Protein (6.0-8.0) g/dL Albumin (3.2-4.6) g/dL Globulin g/dL Albumin/Globulin Ratio Urine Color Yellow (YELLOW) Urine Appearance Slightly cloudy (CLEAR) Urine pH 6.0 (5.0-6.5) Ur Specific [place] 1.010 (1.010-1.025) Urine Protein Negative (NEGATIVE) mg/dL Urine Glucose (UA) Normal (NORMAL) mg/dL Urine Ketones Negative (NEGATIVE) mg/dL Urine Occult Blood Moderate H (NEGATIVE) Urine Nitrite Positive H (NEGATIVE) Urine Bilirubin Negative (NEGATIVE) Urine Urobilinogen Normal (NEGATIVE) mg/dL Ur Leukocyte Esterase Large H (NEGATIVE) Urine RBC 0-5 (0-5) Urine WBC >100 H (0-5) Ur Squamous Epith Cells Few H (NS,R,O) Urine Bacteria Moderate H (NS) Meds: Medications Generic Name Dose Route Start Last Admin Trade Name Freq PRN Reason Stop Dose Admin Sodium Chloride 10 ml 09/12/19 14:30 09/12/19 14:30 Saline Flush FLUSH 10 ml ASDIRECTED PRN Administration IV Use Discontinued Medications Generic Name Dose Route Start Last Admin Trade Name Freq PRN Reason Stop Dose Admin Azithromycin 500 mg 09/12/19 14:47 09/12/19 15:52 Zithromax PO 09/12/19 14:48 500 mg ONETIME ONE Administration Ceftriaxone Sodium 1 gm 09/12/19 14:47 09/12/19 15:52 Rocephin IM 09/12/19 14:48 1 gm ONETIME ONE Administration Sodium Chloride 1,000 mls @ 999 mls/hr 09/12/19 14:29 09/12/19 14:37 Normal Saline IV 09/12/19 15:29 999 mls/hr .BOLUS ONE Administration - Re-Assessments/Exams Free Text/Narrative Re-Assessment/Exam: 09/12/19 16:10 remained stable was started on Rocephin and zithromax , for possible bacteremia ( from multiple IV sites ) UA results indicates she had UTI , script given for macrobid pending urine culture results Departure - Departure Time of Disposition: 16:00 Disposition: Home, Self-Care 01 Clinical Impression: Fever and chills, Viral infection, Cellulitis and abscess of hand, UTI ( urinary tract infection) - Discharge Information *PRESCRIPTION DRUG MONITORING PROGRAM REVIEWED*: Not Applicable *COPY OF PRESCRIPTION DRUG MONITORING REPORT IN PATIENT [place]: Not Applicable Prescriptions: Azithromycin [Zithromax] 500 mg PO DAILY #4 tab Nitrofurantoin Monohyd/M-Cryst [Macrobid 100 mg Capsule] 100 mg PO BID #14 capsule Instructions: Cellulitis, Adult, Lymphangitis, Adult, Viral Illness, Adult Referrals: Alvin Chahal PA [Primary Care Provider] - Forms: ED Department Discharge Additional Instructions: 1) increase fluid intake 2) complete course of antibiotics and expect result of urine culture 3) If symptoms get worse , call your PCP Sepsis Event Note - Evaluation Sepsis Screening Result: Possible Sepsis Risk - Focused Exam Vital Signs: Vital Signs Temp Pulse Resp BP Pulse Ox 09/12/19 15:25 35.6 C L 65 16 130/56 L 100 09/12/19 13:25 36.4 C 74 18 120/49 L 98 09/12/19 12:35 36.4 C 93 20 148/65 H 99 Date Exam was Performed: 09/12/19 Time Exam was Performed: 16:01 - My Orders Last 24 Hours: My Active Orders 09/12/19 12:48 Blood Culture x2 Reflex Set [OM.PC] Urgent 09/12/19 12:50 Isolation [COMM] Routine 09/12/19 12:55 MISCELLANEOUS REFERENCE TEST Routine 09/12/19 13:00 CULTURE BLOOD [BC] Urgent 09/12/19 13:10 CULTURE BLOOD [BC] Urgent 09/12/19 14:30 Sodium Chloride 0.9% [Saline Flush] 10 ml FLUSH ASDIRECTED PRN 09/12/19 15:15 CULTURE URINE [RM] Stat - Assessment/Plan Last 24 Hours: My Active Orders 09/12/19 12:48 Blood Culture x2 Reflex Set [OM.PC] Urgent 09/12/19 12:50 Isolation [COMM] Routine 09/12/19 12:55 MISCELLANEOUS REFERENCE TEST Routine 09/12/19 13:00 CULTURE BLOOD [BC] Urgent 09/12/19 13:10 CULTURE BLOOD [BC] Urgent 09/12/19 14:30 Sodium Chloride 0.9% [Saline Flush] 10 ml FLUSH ASDIRECTED PRN 09/12/19 15:15 CULTURE URINE [RM] Stat
[2019-09-12 16:16] VITALS: BP 131/60; PULSE 66
== END 2019-09-12 16:13 | disposition home or self-care (01) ==
LOC: FB.ED 12:30
DX: B34.9 Viral infection, unspecified (principal); N39.0 Urinary tract infection, site not specified; L02.519 Cutaneous abscess of unspecified hand; L03.119 Cellulitis of unspecified part of limb; E11.9 Type 2 diabetes mellitus without complications; E03.9 Hypothyroidism, unspecified; Z79.82 Long term (current) use of aspirin; I25.2 Old myocardial infarction; Z87.891 Personal history of nicotine dependence; Z79.899 Other long term (current) drug therapy
CPT/HCPCS: 36415; 80053; 81001; 85025; 85610; 86140; 87040; 87086; 87088; 87186; 87804; 87804-59; 96372; 99283; A9270-GY; J0696; J7030

== ENCOUNTER 2023-07-12 18:15 | Emergency (ER) | payer MEDICARE, MEDICAID ==
[2023-07-12 18:49] LABS: BASOPHILS ABSOLUTE AUTO 0.1 x10-3/uL (0.0-0.1); BASOPHILS PERCENT AUTO 0.7 % (0.2-1.5); EOSINOPHILS ABSOLUTE AUTO 0.1 x10-3/uL (0.0-0.8); EOSINOPHILS PERCENT AUTO 0.7 % (0.6-8.1); HEMATOCRIT 38.3 % (34.2-48.2); HEMOGLOBIN 13.9 g/dL (11.4-15.5); LYMPHOCYTES ABSOLUTE AUTO 0.8 x10-3/uL (1.0-4.4); LYMPHOCYTES PERCENT AUTO 8.1 % (18.4-52.1); MEAN CORPUSCULAR HEMOGLOBIN 36.4 pg (23.9-33.9); MEAN CORPUSCULAR HGB CONC 36.4 g/dL (31.9-34.8); MEAN PLATELET VOLUME 8.2 fL (7.1-12.4); MONOCYTES ABSOLUTE AUTO 1.1 x10-3/uL (0.3-1.0); MONOCYTES PERCENT AUTO 11.3 % (4.4-15.7); NEUTROPHILS ABSOLUTE AUTO 7.8 x10-3/uL (1.5-6.3); NEUTROPHILS PERCENT AUTO 79.2 % (30.8-76.2); PLATELET COUNT,PLT 227 x10(3)uL (151-488); RED BLOOD CELL COUNT 3.83 x10(6)uL (3.60-5.20); RED CELL DISTRIBUTION WIDTH 13.1 % (12.3-16.5); WHITE BLOOD CELL COUNT,WBC 9.9 x10-3/uL (3.0-10.3)
[2023-07-12 18:50] LABS: BLOOD UREA NITROGEN,BUN 32 mg/dL (7-18); BUN/CREATININE RATIO 18.8 (9-20); CALCIUM 9.4 mg/dL (8.6-10.2); CARBON DIOXIDE,CO2 26 mmol/L (21-32); CHLORIDE,CL 93 mmol/L (100-110); CREATININE 1.7 mg/dL (0.55-1.02); EST CRCL DRUG DOSING (CG) 29.69 mL/min; ESTIMATED GFR 33 mL/min (>60); POTASSIUM,K 3.1 mmol/L (3.5-5.3); SODIUM,NA 130 mmol/L (135-145)
[2023-07-12] MEDS: Albuterol/Ipratropium 3.0-0.5 MG/3 ML Neb Soln NEB ONE (18:50)
[2023-07-12] MEDS: Sodium Chloride 0.9% 1,000 ML IV SCH (18:51)
[2023-07-12] MEDS: methylPREDNISolone Sodium Succinate 125 MG/2 ML SDV IVPUSH ONE (18:51)
[2023-07-12 18:56] LABS: A/G RATIO 1.1; ALANINE AMINOTRANSFERASE,ALT 43 U/L (12-36); ALBUMIN 3.8 g/dL (3.2-4.6); ALKALINE PHOSPHATASE 62 IU/L (56-112); ASPARTATE AMNIOTRANSFERASE,AST 129 IU/L (5-25); BILIRUBIN TOTAL 0.6 mg/dL (0.1-1.3); PROTEIN TOTAL,TP 7.2 g/dL (6.0-8.0)
[2023-07-12 19:05] LABS: LACTIC ACID 0.5 mmol/L (0.4-2.0)
[2023-07-12 19:06] LABS: D-DIMER QUANTITATIVE 0.4 mg/LFEU (0.0-0.59)
[2023-07-12 19:08] LABS: GLUCOSE RANDOM 25 mg/dL (80-116); TROPONIN I 11912.7 pg/mL (4.0-60.3)
[2023-07-12 19:11] LABS: INR 0.91 (1.00-1.24); PROTHROMBIN TIME 9.6 sec (9.0-11.1); PTT,PARTIAL THROMBOPLSTIN TIME 28.6 SECONDS (24.4-33.2)
[2023-07-12] MEDS: 50% Dextrose in Water 50 ML Syringe IVPUSH ONE (19:12)
[2023-07-12] MEDS: Heparin Sodium 5,000 Units/ML Vial IVPUSH ONE (19:15)
[2023-07-12] MEDS: Aspirin 81 MG Tab.Chew PO ONE (19:17)
[2023-07-12] MEDS: Heparin Sodium/0.45% NaCl 500 ML IV SCH (19:21)
[2023-07-12 19:32] VITALS: BP 102/53; PULSE 50
[2023-07-12 19:38] LABS: INFLUENZA A NAA NEGATIVE (NEGATIVE); INFLUENZA B NAA NEGATIVE (NEGATIVE); RESPIRATORY SYNCYTIAL VIR NAA NEGATIVE (NEGATIVE)
[2023-07-12] MEDS: Ticagrelor 90 MG Tab PO ONE (19:42)
[2023-07-12 19:45] LABS: CORONAVIRUS COVID-19 NAA NEGATIVE (NEGATIVE)
[2023-07-12] MEDS: Dextrose 5% in Water 1,000 ML IV SCH (20:14)
[2023-07-12] MEDS: Levothyroxine 100 MCG Vial IVPUSH ONE (20:34)
== END 2023-07-12 21:21 ==
LOC: FB.ED 18:15
DX: I21.3 ST elevation (STEMI) myocardial infarction of unspecified site (principal); E78.5 Hyperlipidemia, unspecified; E03.9 Hypothyroidism, unspecified; E87.1 Hypo-osmolality and hyponatremia; E87.6 Hypokalemia; I12.9 Hypertensive chronic kidney disease with stage 1 through stage 4 chronic kidney disease, or unspecified chronic kidney disease; E11.22 Type 2 diabetes mellitus with diabetic chronic kidney disease; N18.9 Chronic kidney disease, unspecified; J45.41 Moderate persistent asthma with (acute) exacerbation; I25.2 Old myocardial infarction; F17.210 Nicotine dependence, cigarettes, uncomplicated; Z95.5 Presence of coronary angioplasty implant and graft; Z79.84 Long term (current) use of oral hypoglycemic drugs; Z79.899 Other long term (current) drug therapy
CPT/HCPCS: 0241U; 36415; 71045; 80053; 82947; 83605; 83880; 84443; 84484; 85025; 85379; 85610; 85730; 87040; 93005; 93010; 94640; 96365; 96366; 96375; 99285; A9270; J1644; J2930; J7030; J7060; J7620